=== PATIENT | female | born 1960 | race Caucasian/White ===

== ENCOUNTER 2022-06-24 12:18 | Day surgery (SDC) | payer MEDICARE, BC ==
[~2022-06-24] VITALS: Ht 165.1 cm; Wt 68.6 kg
[~2022-06-24 12:18] MED LIST: AZAT50TA18 PO; CALC0.2511 PO; CHOL100025 PO; FENO145T38 PO; FURO40TA4 PO; LABE200T28 PO; LANTUS SQ; LEVO100T9 PO; LOSA50TA64 PO; MAG400T PO; PANT40TA39 PO; PIOG45TA PO; PRED5TAB PO; SERT25TA PO; SPIR25TA5 PO; TACR1CAP24 PO
[2022-06-24] MEDS ORDERED: normal saline 1000ml 1,000 ML IV PRN (12:40)
[2022-06-24] MEDS ORDERED: BIOT5000 PO (13:19)
[2022-06-24] MEDS ORDERED: FOLIC ACID PO (13:19)
[2022-06-24] MEDS ORDERED: FENO145T38 PO (13:19)
[2022-06-24] MEDS ORDERED: ONDA-103 PO (13:19)
[2022-06-24] MEDS ORDERED: DOXA4TAB43 PO (13:19)
[2022-06-24] MEDS ORDERED: SERTRALINE PO (13:19)
[2022-06-24] MEDS ORDERED: ASCO-294 PO (13:19)
[2022-06-24] MEDS ORDERED: VITAMIN PO (13:19)
[2022-06-24] MEDS ORDERED: NIFE90TA61 PO (13:19)
[2022-06-24] MEDS ORDERED: MYCO180T3 PO (13:19)
[2022-06-24] MEDS ORDERED: APIX5TAB3 PO (13:19)
[2022-06-24 13:27] LABS: BASOPHILS % (AUTO) 0.5 % (0-1); EOSINOPHILS % (AUTO) 0.7 % (0-6); HEMATOCRIT 27.1 % (35.0-45.0); HEMOGLOBIN 8.5 g/dl (12.0-16.0); LYMPHOCYTES # (AUTO) 0.5 X10'3 (1.1-4.8); LYMPHOCYTES % (AUTO) 13.8 % (21-51); MEAN CORPUSCULAR HEMOGLOBIN 28.9 PG (27.0-31.0); MEAN CORPUSCULAR HGB CONC 31.3 g/dL (33.0-36.5); MEAN CORPUSCULAR VOLUME 92.1 FL (78-98); MEAN PLATELET VOLUME 9.6 FL (7.4-10.4); MONOCYTES # (AUTO) 0.2 X10'3 (0-0.9); NEUTROPHILS # (AUTO) 2.9 X10'3 (1.8-7.7); PLATELET COUNT 132 X10'3 (140-440); RED BLOOD COUNT 2.95 X10'6 (4.20-5.60); RED CELL DISTRIBUTION WIDTH 16.4 % (11.5-14.5); WHITE BLOOD COUNT 3.7 X10'3 (4.5-11.0)
[2022-06-24] MEDS ORDERED: heparin 1,000unit/ml 10ml vial 10 ML ONE (13:35)
[2022-06-24] MEDS ORDERED: FENTANYL CITRATE/PF 50 MCG/1 ML VIAL ONE ×2 (13:36→14:33)
[2022-06-24] MEDS ORDERED: LIDOcaine 1% 30ml preserv. free vial ONE (13:36)
[2022-06-24] MEDS ORDERED: midazolam 1 mg/ML 2ml injection ONE (13:36)
[2022-06-24 13:50] VITALS: BP 145/72
[2022-06-24 14:01] VITALS: BP 160/77
[2022-06-24 15:00] VITALS: BP 160/77
[2022-06-24 15:15] VITALS: BP 188/88
[2022-06-24 15:31] VITALS: BP 175/78
[2022-06-24] MEDS ORDERED: pneumococcal 23-VAL P-sac vacc 25 mcg/0.5ml vial IMVAC ONE (15:45)
== END 2022-06-24 15:50 | disposition home or self-care (01) ==
LOC: SSTAY O 12:18
PROVIDERS: ATTEND Radiology Vascular & Interventional Radiology
DX: N17.9 Acute kidney failure, unspecified (principal); Z23 Encounter for immunization; Q61.3 Polycystic kidney, unspecified; Z90.5 Acquired absence of kidney; Z88.6 Allergy status to analgesic agent; Z79.899 Other long term (current) drug therapy
CPT/HCPCS: 36415; 36558; 76937; 77001; 82948; 85025; 85610; 90732; 99152; 99153; C1769; C1894; G0009; J1644; J2250; J3010; J3490; J7030; A9270